=== PATIENT | female | born 1975 | race Caucasian/White ===

== ENCOUNTER 2024-02-04 09:39 | Observation (INO) ==
[2024-02-04] MEDS: Lactated Ringers 1000 ml BAG 1,000 ML IV ONE (11:16)
[2024-02-04 11:28] LABS: ABS Basophils 0.1 10^3/uL (0.0-0.1); ABS Lymphocytes 1.4 10^3/uL (1.0-4.8); ABS Monocytes 0.9 10^3/uL (0.0-0.9); ABS Nucleated RBC 0.01 10^3/ul; Hematocrit 37.3 % (35-45); Hemoglobin 12.6 g/dL (11.5-14.3); Lymphocyte % 7.4 %; Mean Corpuscular Hemoglobin 28.9 pg (27-33); Mean Corpuscular Hgb Conc 33.8 g/dL (31-36); Mean Corpuscular Volume 85.5 fL (80-97); Mean Platelet Volume 7.5 fL (7.5-11.2); Platelet Count 265 10^3/uL (150-450); Red Blood Count 4.37 10^6/uL (3.63-4.92); White Blood Count 18.3 10^3/uL (3.8-11.8)
[2024-02-04 11:30] LABS: Urine Appearance Clear; Urine Bilirubin Negative (Negative); Urine Blood Negative (Negative); Urine Color Yellow; Urine Glucose Negative (Negative); Urine Ketones 1+ (Negative); Urine Nitrite Negative (Negative); Urine Protein Trace (Negative); Urine Specific Gravity 1.024 (1.002-1.030); Urine Urobilinogen Negative (Negative)
[2024-02-04 12:07] LABS: Magnesium 1.8 mg/dL (1.9-2.7); Phosphorus 3.1 mg/dL (2.5-5.0)
[2024-02-04 12:12] LABS: HCG Pregnancy < 0.60 mIU/mL
[2024-02-04] MEDS: Ondansetron 4 mg VIAL 2 MG/ML 2 ml VIAL IV ONE (12:18)
[2024-02-04 13:57] LABS: ALT 18 U/L (7-52); AST 25 U/L (13-39); Albumin 4.2 g/dL (3.2-5.2); Albumin/Globulin Ratio 1.7 (1-3); Alkaline Phosphatase 36 U/L (35-149); Anion Gap 10 mmol/L (2-16); Blood Urea Nitrogen 12 mg/dL (6-24); CO2 Carbon Dioxide 22 mmol/L (22-32); Chloride 102 mmol/L (101-111); Creatinine, Serum 0.66 mg/dL (0.51-0.95); Globulin 2.5 g/dL (2-4); Glucose 97 mg/dL (70-100); Potassium 4.3 mmol/L (3.5-5.0); Sodium 134 mmol/L (135-145); Total Bilirubin 0.5 mg/dL (0.2-1.0); Total Protein 6.7 g/dL (6.4-8.9); eGFR CKD-EPI 108.1 (>60)
[2024-02-04] MEDS: Iohexol 350 (CONTRAST) 500 ML MDV IV ONE (14:33)
[2024-02-04] MEDS: Piperacillin/Tazobac 3.375 BAG 3.375 GM/100 ML BAG IV ONE (18:14)
[2024-02-04] MEDS ORDERED: Rocuronium 50 mg VIAL 10 mg/ml 5 ml VIAL (50 mg) ONE (18:19)
[2024-02-04] MEDS ORDERED: Lidocaine 2% PF 5 ML VIAL ONE (18:19)
[2024-02-04] MEDS ORDERED: fentaNYL 250 mcg/5 ml 50 MCG/ML 5 ml VIAL (250 MCG) ONE (18:20)
[2024-02-04] MEDS ORDERED: Midazolam 2 mg/2 ml VIAL 1 mg/ml 2 ml VIAL (2 mg) ONE (18:20)
[2024-02-04] MEDS ORDERED: Propofol 10 MG/ML 20 ML BTL ONE (18:23)
[2024-02-04] MEDS ORDERED: Bupivacaine 0.25% EPI 200,000 30 ML SDV ONE (18:23)
[2024-02-04] MEDS ORDERED: Ondansetron 4 mg VIAL 2 MG/ML 2 ml VIAL IV PRN ×3 (18:23→21:57)
[2024-02-04] MEDS ORDERED: Metoclopramide 5 MG/ML VIAL (10 mg) IV PRN ×2 (18:23→21:53)
[2024-02-04] MEDS ORDERED: Naloxone 0.4 mg VIAL 0.4 mg/ml 1 ml VIAL IV PRN ×2 (18:23→21:53)
[2024-02-04] MEDS ORDERED: Dexamethasone IV 4 MG/ML VIAL 1 ml VIAL ONE ×2 (18:25→21:27)
[2024-02-04] MEDS ORDERED: Ondansetron 4 mg VIAL 2 MG/ML 2 ml VIAL ONE (18:25)
[2024-02-04] MEDS ORDERED: fentaNYL 100 mcg/2 ml 50 MCG/ML VIAL ONE (18:45)
[2024-02-04] MEDS: fentaNYL 100 mcg/2 ml 50 MCG/ML VIAL IV PRN (18:49)
[2024-02-04] MEDS ORDERED: NS 0.45% 1000 ml BAG 1,000 ML IV SCH ×2 (19:00→22:00)
[2024-02-04] MEDS ORDERED: Phenylephrine 40 mcg/mL 10mL (400mcg) SYRINGE ONE (20:59)
[2024-02-04] MEDS ORDERED: fentaNYL 100 mcg/2 ml 50 MCG/ML VIAL IV PRN (21:53)
[2024-02-04] MEDS ORDERED: Acetaminophen IV 1 GM/100ML 1,000 MG/100 ML BAG IV ONE ×2 (22:34)
[2024-02-04] MEDS: Acetaminophen IV 1 GM/100ML 1,000 MG/100 ML BAG IV ONE (22:35)
[2024-02-04] MEDS: Lactated Ringers 1000 ml BAG 1,000 ML IV SCH (23:50)
[2024-02-05] MEDS: oxyCODONE/Acetamin 5/325 mg TAB PO PRN (01:35)
[2024-02-05] MEDS: Piperacillin/Tazobac 3.375 BAG 3.375 GM/100 ML BAG IV SCH (01:41)
[2024-02-05] MEDS: Lactated Ringers 1000 ml BAG 1,000 ML IV SCH (02:01)
[2024-02-05] MEDS: Scopolamine 1 mg/72hr PATCH TRANSDERM ONE ×2 (02:03→02:05)
[2024-02-05] MEDS: Buffered Lidocaine 1% SYRIN 1 ml INTRADERM ONE ×2 (02:03→02:04)
[2024-02-05] MEDS: Acetaminophen IV 1 GM/100ML 1,000 MG/100 ML BAG IV ONE (02:04)
[2024-02-05] MEDS ORDERED: Senna TAB 8.6 mg TAB PO PRN (10:04)
[2024-02-05] MEDS: DULoxetine DR 30 mg CAP PO SCH (11:00)
[2024-02-05] MEDS: Polyethylene Glycol 3350 17 GM PACKET PO PRN (11:10)
[2024-02-05] MEDS ORDERED: Calcium Carb (TUMS) 500 mg CHEW TAB PO PRN (19:09)
[2024-02-05] MEDS: Amoxicillin/Clavul 875/125 TAB (Augmentin 875 tab) PO SCH (21:02)
[2024-02-06 09:52] VITALS: BP 96/70
== END 2024-02-06 12:50 | disposition home or self-care (01) ==
LOC: ED 09:39 → SSU 17:25 → OR 17:25 → SSU 17:43
PROVIDERS: ADMIT Surgery; ATTEND Surgery